=== PATIENT | female | born 1945 | race Caucasian/White ===

== ENCOUNTER 2020-07-23 12:04 | Outpatient (CLI) | payer OTHER | END 2020-07-23 12:11 | disposition home or self-care (01) | LOC: NUCLEAR 12:04 | PROVIDERS: ATTEND Internal Medicine | DX: E78.49 Other hyperlipidemia (principal); I10 Essential (primary) hypertension; E03.8 Other specified hypothyroidism; E55.9 Vitamin D deficiency, unspecified; K59.00 Constipation, unspecified; K59.01 Slow transit constipation; K64.0 First degree hemorrhoids; M51.06 Intervertebral disc disorders with myelopathy, lumbar region; M81.0 Age-related osteoporosis without current pathological fracture; M06.4 Inflammatory polyarthropathy ==